=== PATIENT | male | born 1985 | race Two or more races ===

== ENCOUNTER 2021-02-24 15:40 | Emergency (ER) | payer MEDICAID ==
[~2021-02-24] VITALS: Ht 177.8 cm; Wt 94.8 kg
[2021-02-24 16:02] VITALS: BP_SYST 117
--- NOTE | 2021-02-24 16:25 | NUR ---
Pt. presents with c/o L shoulder pain at 10/10 on pain scale, pt. states starting back in October he has been having pain to L shoulder post receiving covid vaccine, pain has escalated over the past 3 weeks and now he is having difficilty moving it, denies any trauma or injury, states no other health concerns
--- NOTE | 2021-02-24 17:02 | NUR ---
ROMEL Portillo at bedside examining patient.
--- NOTE | 2021-02-24 17:30 | NUR ---
awaiting x-ray, pt. appears comfortable, has not requested pain med.
--- NOTE | 2021-02-24 17:34 | NUR ---
Patient ambulated to radiology, accompanied by staff.
[2021-02-24] MEDS ORDERED: IBUP-1969 PO (17:55)
[2021-02-24 18:07] VITALS: BP_SYST 120
--- NOTE | 2021-02-24 18:08 | NUR ---
Patient given written and verbal discharge instructions and verbalizes understanding. Dr. Mahoney discussed with patient the results and treatment provided. Patient in stable condition. ID arm band removed. Rx of Motrin given. Patient educated on pain management and to follow up with PMD. Pain Scale 3. Opportunity for questions provided and answered. Medication side effect fact sheet provided.
== END 2021-02-24 18:07 | disposition home or self-care (01) ==
LOC: SED 15:40
DX: M75.52 Bursitis of left shoulder (principal); M77.8 Other enthesopathies, not elsewhere classified; Z79.899 Other long term (current) drug therapy
CPT/HCPCS: 73030; 99283